=== PATIENT | male | born 1940 | race Caucasian/White ===

== ENCOUNTER 2019-04-29 09:25 | Observation (INO) | payer OTHER, BC ==
[~2019-04-29] VITALS: Ht 165.1 cm; Wt 65.0 kg
[~2019-04-29 09:25] MED LIST: AMOXICILLIN 50500 M1 PO; B-100 COMPLEX100 MG PO; CALCIUM + D SO1 EACH PO; CIPRODEX OTIC7.5 ML OTIC; CO Q-1010 MG PO; COLACE100 MG PO; DESYREL150 MG PO; ENDUR-ACIN250 MG PO; MECLIZINE HCL25 M1 PO; MILK THISTLE1 GM; MOBIC7.5 MG PO; MULTIVITAMINS1 EAC7 PO; NORCO 5-325 TA1 EACH PO; OMEGA-31000 M1; PROPRANOLOL 1010 M1 PO; RESTORIL30 MG PO; TAMSULOSIN HCL0.4 M1 PO; VIAGRA50 MG PO; VITAMIN D400 UNI1
[2019-04-29 10:36] LABS: ABSOLUTE NEUTROPHILS 4.1 thou/uL (1.4-8.2); BASOPHILS 1.5 % (0.0-2.0); EOSINOPHILS 4.1 % (0.0-3.0); HEMATOCRIT 42.4 % (42.0-52.0); HEMOGLOBIN 14.5 gm/dL (14.0-18.0); LYMPHOCYTES 21.5 % (24.0-44.0); MCH 31.8 pg (26.0-34.0); MCHC 34.3 g/dL (28.0-37.0); MCV 92.8 fL (80.0-100.0); MONOCYTES 10.5 % (1.0-8.0); PLATELET COUNT 201 thou/uL (150-400); POLYS 62.4 % (36.0-66.0); RBC 4.57 mil/uL (4.50-6.00); RDW 14.7 % (10.5-14.5); WBC 6.5 thou/uL (4.0-11.0)
[2019-04-29 10:46] LABS: CALCIUM 9.1 mg/dL (8.5-10.1); CREATININE 1.2 mg/dL (0.7-1.3); POTASSIUM 4.3 mmol/L (3.5-5.1)
[2019-04-29 10:49] LABS: PROTIME 10.7 Seconds (9.3-11.4)
[2019-04-29 10:52] LABS: ALBUMIN 3.9 g/dL (3.4-5.0); TOTAL BILIRUBIN 0.6 mg/dL (<0.1-1.0); TOTAL PROTEIN 7.1 g/dL (6.4-8.2)
[2019-04-29 10:59] VITALS: BP 138/70
[2019-04-29] MEDS ORDERED: NORVASC5 MG PO (11:28)
[2019-04-29] MEDS ORDERED: ASPIR 8181 MG PO (11:28)
[2019-04-29] MEDS ORDERED: CLONAZEPAM 1 MG1 M1 PO (11:33)
[2019-04-29] MEDS ORDERED: DITROPAN XL10 M1 PO (11:35)
[2019-04-29] MEDS ORDERED: PROTONIX40 M2 PO (11:39)
[2019-04-29] MEDS ORDERED: INTERMEZZO3.5 MG PO (11:45)
[2019-04-29 17:39] VITALS: BP 144/78
--- NOTE | 2019-04-29 19:21 | NUR ---
ASSUMED CARE AT 1715, OX4, AV PACED, LEFT CHEST INCISION SITE WITHOUT HEMATOMA OR DRAINAGE. L SHOULDER IMMOBILIZER IN PLACE. PIV X 2 PATENT. NO COMPLAINTS OF PAIN AT THIS TIME.
[2019-04-29 20:15] VITALS: BP 144/88
[2019-04-30 03:47] VITALS: BP 115/72
[2019-04-30 07:05] VITALS: BP 106/69
--- NOTE | 2019-04-30 08:14 | NUR ---
ASSESSMENTS CHARTED. PATIENT CONCERNED ABOUT HIS CLOTHES WERE LEFT ON THE GURNEY IN WAITSTAFF. 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 PATIENT DEVELOPED RASH ON RIGHT SIDE. GOT MED ORDER. IMMOBILIZER IN PLACE DURING SHIFT, PT ON BEDREST. PLAN TO DC IN MORNING.
[2019-04-30 10:06] VITALS: BP 106/69
--- NOTE | 2019-04-30 11:50 | NUR ---
ASSUMED CARE THIS AM, PATIENT SUPINE IN BED WITH LUE IMMOBILIZER SECURE. NO COMPLAINTS OF PAIN, DIZZINESS OR NAUSEA. SR ON MONITOR WITH INTERMITTENT AV PACING. RASH NOTED TO UPPER TORSO AND EXTREMITIES. BENYDRYL ORDERED FOR ITCHING. IMMOBILIZER REMOVED AND PATIENT INSTRUCTED THAT HE WAS NO LONGER ON BEDREST BUT THAT THE RESTRICTIONS TO THE MOVEMENT OF LUE CONTINUES. VERBALIZED UNDERSTANDING. WAITING FOR PACEMAKER INTERROGATION AND CXR TO PRECEDE DISCHARGE TODAY. 0930: INTERROGATION AND CXR COMPLETE. EDUCATION COMPLETED BY YANICK STEVENS ON PATIENT RESPONSIBILITIES AND ACTIVITY RESTRICTIONS. DISCHARGE INSTRUCTIONS COMPLETED AND MEDICATIONS REVIEWED WELL FOLLOWUP APPOINTMENTS. UNDERSTANDING VERBALIZED. PIV X 2 REMOVED AND HIDE PASTER OFF. DISCHARGED IN STABLE CONDITION
--- NOTE | 2019-05-10 15:03 | P ---
[facility] [place] [address] PROCEDURE REPORT Name: LEYLA SEAY Room #: 219-P [facility] Pranay M.R.#: [id number] Admission: 04/29/19 ������������������ Attend Phys: Will Yu MD Discharge: 04/30/19 ������������������ Date of : 44 Report #: [id number] THIS REPORT FOR: //name// CC: Will Stone PROCEDURE: Pacemaker implantation. PREOPERATIVE DIAGNOSIS: Sick sinus syndrome. POSTOPERATIVE DIAGNOSIS: Sick sinus syndrome. HISTORY: The patient is a 78-year-old with evidence of sick sinus syndrome, here for pacemaker implantation. ANESTHESIA: The patient underwent MAC anesthesia with no anesthesia related complications. COMPLICATIONS: None. DESCRIPTION OF PROCEDURE: The patient underwent informed consent. We discussed the details of the procedure including the risks, which include but not limited to bleeding, infection, vascular damage, cardiac perforation, pneumothorax. He understood these risks and is willing to proceed. The patient was brought to the EP laboratory in fasting and sedated state, prepped and draped in a sterile fashion and underwent venography showing patency of the left axillary vein. He received IV antibiotics prior to initiation of the procedure. Next, lidocaine was injected below the left clavicle. Incision was made, pocket was created over the prepectoral fascia and then access was obtained twice to left axillary vein using the extrathoracic approach with sheaths positioned using the modified Seldinger technique. Next, under fluoroscopy, leads were positioned into the right ventricle and right atrial appendage both with adequate pacing and sensing thresholds. The leads were sutured to the prepectoral fascia. The device was connected. The pocket was irrigated with vancomycin and the pocket was closed in 2 layers using 2-0 for the deep layer, 3-0 for the mid layer and surgical glue was placed to the outer skin layer. The patient awoke neurologically and hemodynamically intact. No complications and no significant bleeding. The implanted pacemaker is a [employer] model #2272, serial #[id number]. The atrial lead was a [employer] model #2088TC, 52 cm, serial #[id number], with a P-wave of 3 millivolts, pacing impedance of 430 ohms, pacing threshold 0.75 volts at 0.4 milliseconds. The RV lead was a [employer] model #2088, 58 cm, serial #[id number], with a R-wave of 9.5 millivolts, pacing impedance of 560 ohms and the pacing threshold 0.5 volts at 0.4 milliseconds. The device was programmed to DDDR 60-130 mode. [facility] [address] [place] [address] PROCEDURE REPORT Name: GEENAMADELINBright GUEVARAMarisol Room #: 219-P [facility] Pranay M.R.#: [id number] Admission: 04/29/19 ������������������ Attend Phys: Will Yu MD Discharge: 04/30/19 ������������������ Date of : 42 Report #: [id number] CONCLUSIONS: 1. Successful dual-chamber pacemaker implantation. 2. Satisfactory atrial and ventricular pacing and sensing thresholds. ��������������������������������������������� <ELECTRONICALLY SIGNED> ���������������������������������������� By: Will Yu MD ��������������������������������������������� 05/10/19 1503 1158 1350 Will Yu MD /nt
== END 2019-04-30 10:52 | disposition home or self-care (01) ==
LOC: CATH 09:25 → 2N 17:38 → ENTRNSPT 04-30 10:33 → EDTRNSPTSTS 04-30 10:43 → 2N 04-30 10:52 → CMPTRNSPT 04-30 11:15
PROVIDERS: ADMIT Internal Medicine Cardiovascular Disease
DX: I49.5 Sick sinus syndrome (principal)
CPT/HCPCS: 62110; 62900; 70005

== ENCOUNTER 2019-05-07 09:08 | Inpatient (IN) | payer OTHER, BC ==
[~2019-05-07] VITALS: Ht 165.1 cm; Wt 66.2 kg
[~2019-05-07 09:08] MED LIST changes: +ASPIR 8181 MG PO; +CLONAZEPAM 1 MG1 M1 PO; +DITROPAN XL10 M1 PO; +INTERMEZZO3.5 MG PO; +NORVASC5 MG PO; +PROTONIX40 M2 PO
[2019-05-07 09:09] VITALS: BP 160/91
[2019-05-07 09:41] LABS: HEMOGLOBIN 14.4 gm/dL (14.0-18.0); MCH 31.5 pg (26.0-34.0); WBC 6.4 thou/uL (4.0-11.0)
[2019-05-07 09:42] LABS: URINE BILIRUBIN NEGATIVE (Negative); URINE BLOOD NEGATIVE (Negative); URINE CLARITY CLEAR; URINE COLOR YELLOW; URINE GLUCOSE-RANDOM* NEGATIVE (Negative); URINE KETONES NEGATIVE (Negative); URINE LEUKOCYTES-REFLEX NEGATIVE (Negative); URINE NITRITE-REFLEX NEGATIVE (Negative); URINE PROTEIN (DIPSTICK) NEGATIVE (Negative); URINE UROBILINOGEN 0.2 E.U./dl (0.2-1.0)
[2019-05-07 09:43] LABS: HEMATOCRIT 41.7 % (42.0-52.0); MCHC 34.5 g/dL (28.0-37.0); MCV 91.4 fL (80.0-100.0); PLATELET COUNT 188 thou/uL (150-400); RBC 4.56 mil/uL (4.50-6.00); RDW 14.8 % (10.5-14.5)
[2019-05-07 10:59] LABS: ABSOLUTE NEUTROPHILS 4.6 thou/uL (1.4-8.2); PLATELET ESTIMATE NORMAL
[2019-05-07 11:13] LABS: MAGNESIUM 1.9 mg/dL (1.8-2.4); POTASSIUM 3.6 mmol/L (3.5-5.1); TOTAL BILIRUBIN 0.5 mg/dL (<0.1-1.0); TOTAL PROTEIN 7.6 g/dL (6.4-8.2); TROPONIN-I 0.08 ng/mL (<0.06)
[2019-05-07 12:11] VITALS: BP 153/80
--- NOTE | 2019-05-07 12:30 | NUR ---
ATTEMPTED TO CALL REPORT NURSE NOT READY
[2019-05-07 12:55] VITALS: BP 130/80
[2019-05-07] MEDS ORDERED: VITAMIN D3400 UNIT PO (12:57)
[2019-05-07] MEDS ORDERED: FISH OIL 1,001000 M2 PO (12:59)
[2019-05-07] MEDS ORDERED: DITROPAN XL10 M1 PO (13:01)
[2019-05-07] MEDS ORDERED: MIRALAX17 GM PO (13:03)
[2019-05-07] MEDS ORDERED: PROBIOTIC1 EAC1 PO (13:04)
[2019-05-07 13:20] VITALS: BP 133/78
[2019-05-07 15:14] VITALS: BP 121/70
--- NOTE | 2019-05-07 17:29 | EKG ---
[place] [address] [facility] [employer] [address] ELECTROCARDIOGRAM REPORT Name: LEYLA SEAY Room #: 456-P ADM IN M.R.#: [id number] ������������������ Admission: 05/07/19 ������������������ Attend Phys: Dayanna Ramos MD Discharge: ������������������ Date of : 44 Report #: [id number] ����������������������������������������������������������������� [id number] THIS REPORT FOR: //name// 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 Internship: : 1940 Requested By: Yoni Nj Order Number: [id number] MD: Fareed Otto Measurements Intervals Wilson Rate: 93 P: [place]: QRS: -36 QRSD: 100 T: 64 QT: 357 QTc: 445 Interpretive Statements Sinus rhythm Abnormal R-wave progression, late transition Leftward axis No previous ECG available for comparison Electronically Signed On 05-07-2019 17:29:11 CDT by Fareed Otto [email or web address] ��������������������������������������������� <ELECTRONICALLY SIGNED> ���������������������������������������� By: Fareed Otto MD, [facility] ��������������������������������������������� 05/07/19 1729 5 5 Fareed Otto MD, [facility] /EPI
[2019-05-07 19:49] VITALS: BP 139/86
--- NOTE | 2019-05-07 20:14 | NUR ---
PATIENT ADMITTED FROM ER, REPORT FROM MATT/RN. PATIENT ADMITTED DUE TO WEAKNESS AND FELL AT HOME, COUGH NOTED, ELEVATED TEMP. PATIENT POSTITIVE FOR FLU AND CXR NOTED PNUEMONIA. PATIENT RECEIVED IV ANTIBIOTICS IN ER, TAMIFLU, TYLENOL, 1 LITER OF IV FLUIDS. PATIENT HAS LEFT AC IV IN PLACE, STATRED NS BACK AT 125CC/HR. PATIENT VOIDED X 2 THIS SHIFT, LBM ON MONDAY. PATIENT HAS BRUSING TO LEFT CHEST AREA, DUE TO PACEMAKER PLACE LAST MONDAY, BRUSING/REDNESS NOTED TO AREA. CARDIO CHECKED PACEMAKE IN ER AND WAS WORKING FINE. DR CRUZ HERE THIS AFTERNOON AND STATES PACEMAKER WORKING W/O DIFFICULTY. AT BEDSIDE. WILL CONTINUE TO MONITOR.
--- NOTE | 2019-05-08 01:09 | NUR ---
Assumed care at 1845. Pt resting in bed. VSS. Gave tylenol once for increased temp. AOX4. Pt denies pain. Still having none productive cough. Bruising left chest area at site of pacemaker placement. Bilateral SCD's. Pt hasnt left the bed because of increased weakness. No identified needs at the moment. Will continue to monitor.
[2019-05-08 05:19] VITALS: BP 110/60
[2019-05-08 08:17] VITALS: BP 117/66
[2019-05-08 14:32] VITALS: BP 109/60
[2019-05-08 19:29] VITALS: BP 131/63
--- NOTE | 2019-05-08 19:47 | NUR ---
PT A&oX4, VSS, NO FEVER TODAY AND DENIES PAIN. PT FELT THAT HE WAS RETAINING FLUIDS. BLADDER SCAN DONE AT 1000 AND SCANNER READ 445 ML IN BLADDER. CRAFT WAS ATTEMPTED AND UNSUCCESSFUL. AT THAT TIME PT STATED HE HAD THE URGE TO GO AND WANTED TO HOLD OFF ON CRAFT INSERTION. BLADDER SCAN DONE AGAIN AT 1500 AND READ 180. PT HASNT HAD ANY RETENTION SINCE THIS AM, HE HAS BEEN USING URINAL. PT HAS ORDERS PLACE FOR PT AND OT THERAPIES. PT WAS ASSISTED TIMES 1 WITH A WALKER TO RECLINER AND WAS SUCCESSFUL AND STEADY ON FEET. PT HAS NON PRODUCTIVE COUGH, LUNGS CLEAR, NO SIGNS OF DISTRESS. WILL CONTINUE TO MONITOR.
--- NOTE | 2019-05-09 03:31 | NUR ---
ASSUMED CARE AROUND 190. AXOX3. ISO FOR INFLUENZA. NO S/S ACUTE DISTRESS NOTED OR REPORTED AT THIS TIME. WILL CONT TO MONITOR FOR ANY CHANGES IN CONDITION.
[2019-05-09 03:54] VITALS: BP 123/69
[2019-05-09 09:03] VITALS: BP 147/70
--- NOTE | 2019-05-09 09:06 | HC ---
[facility] [place] [address] CONSULTATION Name: LEYLA SEAY Room #: 456-P ADM IN M.R.#: [id number] Admission: 05/07/19 ������������������ Attend Phys: Dayanna Ramos MD Discharge: ������������������ Date of : 44 Report #: [id number] THIS REPORT FOR: //name// CC: Dayanna Ramos Kush [facility] DATE OF SERVICE: 05/08/2019 ATTENDING PHYSICIAN: Dayanna Ramos MD. REASON FOR CONSULTATION: Antibiotic management. Influenza A. Pneumonia. HISTORY OF PRESENT ILLNESS: A 78-year-old man is admitted with history of marked weakness, fever, upper airway congestion and cough and diagnosed to have influenza A and left lower lobe pneumonia, started on treatment with combination of Tamiflu, ceftriaxone and azithromycin. Today, temperature is better. He is all in all feeling better. DRUG ALLERGIES: IBUPROFEN AND HIVES. MEDICATIONS: He is on aspirin, amlodipine, niacin, propranolol, pantoprazole, oxybutynin, clonazepam, trazodone, fentanyl p.r.n., acetaminophen p.r.n., ondansetron p.r.n., normal saline 1000 mL an hour, oseltamivir 75 mg p.o. b.i.d., single dose azithromycin 500 mg IV and Rocephin 1 gram IV yesterday. PAST MEDICAL HISTORY: Appendectomy. Tonsillectomy. Colonic related abscess, question hepatic splenic abscess. I believe, I treated him in the past, but he has no recollection of this. Peptic ulcer disease. Previous episode of gastrointestinal bleeding post-colonoscopy. Status post permanent pacemaker on 04/29/[address] Will Yu. REVIEW OF SYSTEMS: Profound weakness. Some incisional pain left chest, otherwise, getting better. PHYSICAL EXAMINATION: GENERAL: Well-developed man, not toxic looking. VITAL SIGNS: Temperature maximum 101.5, down to 98.8, respirations 18, BP 117/76, O2 saturation 92% on room air. HEENMT: Within range. NECK: Supple, no thyromegaly. LUNGS: Crackles, left lung base posteriorly. CHEST: Left infraclavicular permanent pacemaker incisional wound with some surrounding ecchymosis. HEART: S1, S2. No gallop or murmur. ABDOMEN: Soft, no masses or megaly. GENITALIA AND RECTAL: Deferred. [address] [address] CONSULTATION Name: LEYLA SEAY Room #: 456-P ADM IN .R.#: [id number] Admission: 05/07/19 ������������������ Attend Phys: Dayanna Ramos MD Discharge: ������������������ Date of : 44 Report #: [id number] EXTREMITIES: No clubbing, cyanosis. NEUROLOGIC: Grossly within normal limits. LABORATORY DATA: Revealed sodium 142, potassium 3.6, BUN 10, creatinine 1, SGOT 46, albumin 4 g/dL. CK 813, troponin 0.08 ng/mL. NT-proBNP 733. WBC 6400, hemoglobin 14.4 g/dL, platelets 188,000. White blood cell count differential revealed 69% segmented neutrophils, 18% monocytes, 3% basophils. The influenza A rapid test is positive. Urinalysis is negative. MICROBIOLOGY DATA: Blood cultures are negative at the time of this dictation. RADIOLOGY EVALUATION: Chest x-ray revealed left basilar infiltrates and cardiomegaly and permanent pacemaker. ASSESSMENT: 1. Influenza A. 2. Community-acquired pneumonia. 3. Status post permanent pacemaker. 4. History of diverticular abscess. SUGGESTIONS: Recommend continue treatment with Tamiflu for a total of 5 days, 75 mg b.i.d. Continue Rocephin 1 gram IV daily and Zithromax [address] Ramos, thank you for requesting my suggestions. ��������������������������������������������� <ELECTRONICALLY SIGNED> ���������������������������������������� By: Jose Enrique Yu MD ��������������������������������������������� 05/09/19 0906 1002 2215 Jose Enrique Yu MD /nt
[2019-05-09 10:25] LABS: HEMATOCRIT 42.1 % (42.0-52.0); HEMOGLOBIN 14.4 gm/dL (14.0-18.0); MCH 31.6 pg (26.0-34.0); MCHC 34.3 g/dL (28.0-37.0); MCV 92.3 fL (80.0-100.0); PLATELET COUNT 172 thou/uL (150-400); RBC 4.56 mil/uL (4.50-6.00); RDW 14.4 % (10.5-14.5); WBC 3.9 thou/uL (4.0-11.0)
[2019-05-09 10:33] LABS: CALCIUM 8.6 mg/dL (8.5-10.1); CREATININE 0.9 mg/dL (0.7-1.3); POTASSIUM 3.4 mmol/L (3.5-5.1)
[2019-05-09 11:10] LABS: ABSOLUTE NEUTROPHILS 1.7 thou/uL (1.4-8.2); ATYPICAL LYMPHS 1 %; PLATELET ESTIMATE NORMAL
[2019-05-09 15:03] VITALS: BP 140/67
--- NOTE | 2019-05-09 15:24 | NUR ---
PT A&OX4, VSS, DENIES PAIN. PT AMBULATED WITH PHYSICAL THERAPY TODAY AND DID WELL; STEADY ON HIS FEET WITH WALKER. FALL PRECAUTIONS IN PLACE. NO SIGNS OF DISTRESS. WILL CONTINUE TO MONITOR.
--- NOTE | 2019-05-09 15:37 | NUR ---
PT ADMITTED RELATED TO INFLUENZA A. CM REVIEWED CHART AND SPOKE WITH CARE TEAM. CM MET WITH PT AND SPOUSE AT BEDSIDE THIS DAY. PT INDICATED HE LIVES IN A HOUSE WITH HIS SPOUSE WITH 2 STEPS TO ENTER AND 13 STEPS INSIDE. 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 PT INDICATED HE HAD HH SERVICES 3 YEARS AGO WHEN HE HAD HIS HIP REPLACED. PT INDICATED HE DIDN'T ANTICIPATE THAT HE WILL HAVE ANY NEEDS UPON DISCHARGE. CARE TEAM ANTICIPATES THAT PT WILL LIKELY BE MEDICALLY STABLE TO DISCHARGE HOME TOMORROW. CM TO FOLLOW INDICATED [facility] DC PLANNING.
[2019-05-09 19:31] VITALS: BP 145/68
--- NOTE | 2019-05-10 04:54 | NUR ---
A/O, calm and cooperative; vss, afebrile; patient asked to be discharged as early as possible. bed side. denied pain, no n/v. lab reviewed. Will keep monitoring.
[2019-05-10 05:21] VITALS: BP 138/76
[2019-05-10 07:41] VITALS: BP 135/76
[2019-05-10] MEDS ORDERED: OSELB75 PO ×2 (10:30→13:53)
[2019-05-10] MEDS ORDERED: CEFUROXIME500 MG PO ×2 (10:30→13:53)
[2019-05-10 10:45] VITALS: BP 135/76
--- NOTE | 2019-05-10 14:42 | NUR ---
Assumed pt care this am, is at the bedside. No signs of distess has been noted nor verbalized by the pt. Pt is now walking with a steady gait and is able to ambulate from room to nurses station. POC followed DC instructions and prescriptions given. IIV removed. Pt is now dc taken home by his .
== END 2019-05-10 15:05 | disposition home or self-care (01) | DRG 193 ==
LOC: ER 09:08 → EROBS 11:29 → 4W 11:29 → ENTRNSPT 05-10 14:27 → EDTRNSPTSTS 05-10 14:30 → 4W 05-10 15:05
PROVIDERS: Emergency Medicine; Hospitalist; ADMIT Internal Medicine
DX: J10.00 Influenza due to other identified influenza virus with unspecified type of pneumonia (principal); I21.A1 Myocardial infarction type 2; I49.5 Sick sinus syndrome; Z96.649 Presence of unspecified artificial hip joint; K57.90 Diverticulosis of intestine, part unspecified, without perforation or abscess without bleeding; G47.33 Obstructive sleep apnea (adult) (pediatric); I09.1 Rheumatic diseases of endocardium, valve unspecified; R25.1 Tremor, unspecified; G47.00 Insomnia, unspecified; K21.9 Gastro-esophageal reflux disease without esophagitis; D72.819 Decreased white blood cell count, unspecified; Z90.49 Acquired absence of other specified parts of digestive tract; Z95.0 Presence of cardiac pacemaker; Z88.6 Allergy status to analgesic agent; Z82.49 Family history of ischemic heart disease and other diseases of the circulatory system; Z98.49 Cataract extraction status, unspecified eye
CPT/HCPCS: 10047

== ENCOUNTER → 2020-06-11 | Outpatient (CLI) | payer OTHER, BC ==
[~2020-06-11] MED LIST changes: +CEFUROXIME500 MG PO; +FISH OIL 1,001000 M2 PO; +MIRALAX17 GM PO; +OSELB75 PO; +PROBIOTIC1 EAC1 PO; +VITAMIN D3400 UNIT PO
== END ==
LOC: SJCVCIMAG 04-16 09:43
PROVIDERS: ATTEND Internal Medicine Cardiovascular Disease
DX: Z45.018 Encounter for adjustment and management of other part of cardiac pacemaker (principal); I08.3 Combined rheumatic disorders of mitral, aortic and tricuspid valves; I77.810 Thoracic aortic ectasia; I27.20 Pulmonary hypertension, unspecified; I10 Essential (primary) hypertension; R94.31 Abnormal electrocardiogram [ECG] [EKG]; I49.5 Sick sinus syndrome; E78.5 Hyperlipidemia, unspecified; Z79.82 Long term (current) use of aspirin; Z79.899 Other long term (current) drug therapy; Z82.49 Family history of ischemic heart disease and other diseases of the circulatory system

== ENCOUNTER → 2020-12-16 | Outpatient (CLI) | payer OTHER, BC | LOC: SJCVCIMAG 10:09 | PROVIDERS: ATTEND Internal Medicine Cardiovascular Disease | DX: I44.0 Atrioventricular block, first degree (principal); I49.3 Ventricular premature depolarization; I49.1 Atrial premature depolarization; I35.1 Nonrheumatic aortic (valve) insufficiency; R60.9 Edema, unspecified; I49.5 Sick sinus syndrome; I10 Essential (primary) hypertension; E78.5 Hyperlipidemia, unspecified; I73.9 Peripheral vascular disease, unspecified; G47.30 Sleep apnea, unspecified; Z96.642 Presence of left artificial hip joint; Z95.0 Presence of cardiac pacemaker; Z79.82 Long term (current) use of aspirin; Z79.899 Other long term (current) drug therapy; Z82.49 Family history of ischemic heart disease and other diseases of the circulatory system ==

== ENCOUNTER → 2021-06-30 | Outpatient (CLI) | payer OTHER, BC | LOC: SJCVC 14:48 | PROVIDERS: ATTEND Internal Medicine Cardiovascular Disease | DX: I10 Essential (primary) hypertension (principal); R06.00 Dyspnea, unspecified; I49.5 Sick sinus syndrome; I35.1 Nonrheumatic aortic (valve) insufficiency; E78.5 Hyperlipidemia, unspecified; G47.30 Sleep apnea, unspecified; Z90.49 Acquired absence of other specified parts of digestive tract; Z96.642 Presence of left artificial hip joint; Z88.8 Allergy status to other drugs, medicaments and biological substances; Z79.82 Long term (current) use of aspirin; Z79.899 Other long term (current) drug therapy; Z82.49 Family history of ischemic heart disease and other diseases of the circulatory system ==